=== PATIENT | female | born 1985 | race Caucasian/White ===

== ENCOUNTER 2022-01-04 05:50 | Emergency (ER) | payer MEDICAID ==
[~2022-01-04] VITALS: Ht 162.6 cm; Wt 90.9 kg
[~2022-01-04 05:50] MED LIST: HYDR-4383 PO; ONDA4TAB6 PO
[2022-01-04 05:54] VITALS: BP 120/91
--- NOTE | 2022-01-04 07:00 | NUR ---
Pt having moderate SOB with coarse sounds, asked RT to come for breathing tx. MD ok with breathing tx, will be in to see pt shortly.
[2022-01-04 07:13] LABS: ALANINE AMINOTRANSFERASE 111 U/L (12-78); ALBUMIN 3.4 G/DL (3.4-5.0); ALBUMIN/GLOBULIN RATIO 0.9 (1.1-1.5); ALKALINE PHOSPHATASE 79 IU/L (46-116); ANION GAP 6 (8-16); ASPARTATE AMINO TRANSFERASE 74 U/L (10-37); BASOPHILS # (AUTO) 0.1 X10'3 (0-0.2); BASOPHILS % (AUTO) 0.7 % (0-1); BILIRUBIN,TOTAL 0.4 MG/DL (0.1-1.0); BLOOD UREA NITROGEN 9 MG/DL (7-18); BUN/CREATININE RATIO 13.6 (6.6-38.0); CALCIUM 8.6 MG/DL (8.5-10.1); CHLORIDE 103 MMOL/L (99-107); CREATININE 0.66 MG/DL (0.40-0.90); EOSINOPHILS # (AUTO) 0.7 X10'3 (0-0.9); EOSINOPHILS % (AUTO) 6.8 % (0-6); GLUCOSE 101 MG/DL (70-104); HEMATOCRIT 42.8 % (35.0-45.0); HEMOGLOBIN 14.5 g/dl (12.0-16.0); LYMPHOCYTES % (AUTO) 20.1 % (21-51); MEAN CORPUSCULAR HEMOGLOBIN 30.2 PG (27.0-31.0); MEAN CORPUSCULAR HGB CONC 33.8 g/dL (33.0-36.5); MEAN CORPUSCULAR VOLUME 89.5 FL (78-98); MEAN PLATELET VOLUME 8.4 FL (7.4-10.4); MONOCYTES # (AUTO) 0.7 X10'3 (0-0.9); MONOCYTES % (AUTO) 6.5 % (2-12); NEUTROPHILS # (AUTO) 6.6 X10'3 (1.8-7.7); NEUTROPHILS % (AUTO) 65.9 % (42-75); PLATELET COUNT 245 X10'3 (140-440); POTASSIUM 3.9 MMOL/L (3.5-5.1); RED BLOOD COUNT 4.78 X10'6 (4.20-5.60); RED CELL DISTRIBUTION WIDTH 13.3 % (11.5-14.5); SODIUM 136 MMOL/L (135-145); TOTAL CARBON DIOXIDE 26.6 MMOL/L (24-32); TOTAL PROTEIN 7.4 G/DL (6.4-8.2); WHITE BLOOD COUNT 10.1 X10'3 (4.5-11.0); eGFR > 90 ML/MIN
[2022-01-04] MEDS ORDERED: albuterol 2.5 MG/3 ML nebule CONTNEB PRN (07:15)
[2022-01-04] MEDS ORDERED: dexamethasone sod phosphate 10mg/ml inj IV STA (07:16)
[2022-01-04] MEDS ORDERED: magnesium 2GM in 50ml NS 50 ML IV ONE (07:20)
--- NOTE | 2022-01-04 08:15 | NUR ---
Pt feeling much better with breathing tx.
--- NOTE | 2022-01-04 09:15 | NUR ---
Pt states she feels so much better after breathing tx and medications. able to get up and walk to bathroom without issues.
[2022-01-04] MEDS ORDERED: ALBU6.7H9 INH (09:33)
[2022-01-04] MEDS ORDERED: PRED20TA PO (09:33)
== END 2022-01-04 09:50 | disposition home or self-care (01) ==
LOC: ER 05:51
DX: J45.909 Unspecified asthma, uncomplicated (principal); Z20.822 Contact with and (suspected) exposure to COVID-19; R06.02 Shortness of breath; I10 Essential (primary) hypertension; F17.200 Nicotine dependence, unspecified, uncomplicated; Z88.5 Allergy status to narcotic agent; Z88.1 Allergy status to other antibiotic agents; Z79.899 Other long term (current) drug therapy
CPT/HCPCS: 36415; 71045; 80053; 83880; 84484; 85025; 87635; 93005; 94640; 94644; 96365; 96366; 96375; 99285; C9803; J1100; J3475; 94760; A7015

== ENCOUNTER 2022-06-16 12:11 | Emergency (ER) | payer MEDICAID ==
[~2022-06-16] VITALS: Ht 162.6 cm; Wt 81.8 kg
[~2022-06-16 12:11] MED LIST changes: +ALBU6.7H14 INH
[2022-06-16 12:47] VITALS: BP 146/104
[2022-06-16] MEDS ORDERED: predniSONE 20 mg tablet PO ONE (13:35)
[2022-06-16] MEDS ORDERED: ipratropium/albuterol 3ml nebule NEB ONE (13:35)
[2022-06-16] MEDS ORDERED: PRED20TA PO (13:55)
[2022-06-16] MEDS ORDERED: BUDE180A INH (13:55)
[2022-06-16] MEDS ORDERED: ALBU6.7H14 INH (13:55)
[2022-06-16] MEDS ORDERED: albuterol 2.5 MG/3 ML nebule CONTNEB PRN (14:00)
== END 2022-06-16 15:21 | disposition home or self-care (01) ==
LOC: ER 12:12
DX: J45.901 Unspecified asthma with (acute) exacerbation (principal); I10 Essential (primary) hypertension; F17.210 Nicotine dependence, cigarettes, uncomplicated; Z88.5 Allergy status to narcotic agent; Z88.1 Allergy status to other antibiotic agents
CPT/HCPCS: 71046; 94640; 94644; 99285; J7512; 94760; A7015

== ENCOUNTER 2022-09-24 03:01 | Emergency (ER) | payer MEDICAID ==
[~2022-09-24] VITALS: Ht 162.6 cm; Wt 90.9 kg
[~2022-09-24 03:01] MED LIST changes: +BUDE180A INH
[2022-09-24] MEDS ORDERED: albuterol 2.5 MG/3 ML nebule NEB ONE (03:30)
[2022-09-24] MEDS ORDERED: methylPREDNISolone sod succ 125mg/2ml vial IV ONE (03:30)
[2022-09-24] MEDS ORDERED: albuterol 2.5 MG/3 ML nebule CONTNEB PRN (03:30)
[2022-09-24 03:36] LABS: BASOPHILS # (AUTO) 0.1 X10'3 (0-0.2); BASOPHILS % (AUTO) 0.9 % (0-1); EOSINOPHILS # (AUTO) 0.8 X10'3 (0-0.9); EOSINOPHILS % (AUTO) 8.1 % (0-6); HEMATOCRIT 44.4 % (35.0-45.0); HEMOGLOBIN 14.8 g/dl (12.0-16.0); LYMPHOCYTES # (AUTO) 2.1 X10'3 (1.1-4.8); LYMPHOCYTES % (AUTO) 22.3 % (21-51); MEAN CORPUSCULAR HEMOGLOBIN 29.8 PG (27.0-31.0); MEAN CORPUSCULAR HGB CONC 33.2 g/dL (33.0-36.5); MEAN CORPUSCULAR VOLUME 89.6 FL (78-98); MEAN PLATELET VOLUME 8.3 FL (7.4-10.4); MONOCYTES # (AUTO) 0.6 X10'3 (0-0.9); MONOCYTES % (AUTO) 6.6 % (2-12); NEUTROPHILS % (AUTO) 62.1 % (42-75); PLATELET COUNT 261 X10'3 (140-440); RED BLOOD COUNT 4.95 X10'6 (4.20-5.60); RED CELL DISTRIBUTION WIDTH 14.2 % (11.5-14.5); WHITE BLOOD COUNT 9.6 X10'3 (4.5-11.0)
[2022-09-24] MEDS ORDERED: ipratropium/albuterol 3ml nebule NEB PRN (03:45)
[2022-09-24 03:50] LABS: ALANINE AMINOTRANSFERASE 25 U/L (12-78); ALBUMIN 3.9 G/DL (3.4-5.0); ALKALINE PHOSPHATASE 61 IU/L (46-116); ANION GAP 9 (8-16); ASPARTATE AMINO TRANSFERASE 19 U/L (10-37); BILIRUBIN,TOTAL 0.4 MG/DL (0.1-1.0); BLOOD UREA NITROGEN 7 MG/DL (7-18); BUN/CREATININE RATIO 10.4 (6.6-38.0); CALCIUM 9.6 MG/DL (8.5-10.1); CHLORIDE 103 MMOL/L (99-107); CREATININE 0.67 MG/DL (0.40-0.90); GLUCOSE 98 MG/DL (70-104); POTASSIUM 3.5 MMOL/L (3.5-5.1); SODIUM 139 MMOL/L (135-145); TOTAL PROTEIN 7.8 G/DL (6.4-8.2); eGFR > 90 ML/MIN
[2022-09-24 03:52] LABS: MAGNESIUM 1.9 MG/DL (1.5-2.4)
[2022-09-24 05:00] VITALS: BP 158/99
[2022-09-24] MEDS ORDERED: PRED20TA PO (05:12)
== END 2022-09-24 05:29 | disposition home or self-care (01) ==
LOC: ER 03:02
DX: J45.901 Unspecified asthma with (acute) exacerbation (principal); I10 Essential (primary) hypertension; Z88.5 Allergy status to narcotic agent; Z88.1 Allergy status to other antibiotic agents; Z79.899 Other long term (current) drug therapy
CPT/HCPCS: 36415; 80053; 83735; 83880; 84484; 85025; 93005; 94640; 94644; 96374; 99285; J2930; A7015

== ENCOUNTER 2022-11-24 16:42 | Emergency (ER) | payer MEDICAID ==
[2022-11-24] MEDS ORDERED: normal saline 1000ML IV soln IV ONE (17:05)
[2022-11-24] MEDS ORDERED: methylPREDNISolone sod succ 125mg/2ml vial IV ONE (17:05)
[2022-11-24] MEDS ORDERED: CefTRIAXone 2gm/D5W 50ml BAG 50 ML IV ONE (17:05)
[2022-11-24] MEDS ORDERED: albuterol 2.5 MG/3 ML nebule NEB ONE (17:05)
[2022-11-24 17:32] LABS: BASOPHILS # (AUTO) 0.1 X10'3 (0-0.2); BASOPHILS % (AUTO) 0.4 % (0-1); EOSINOPHILS # (AUTO) 0.1 X10'3 (0-0.9); EOSINOPHILS % (AUTO) 0.8 % (0-6); HEMATOCRIT 40.1 % (35.0-45.0); HEMOGLOBIN 13.5 g/dl (12.0-16.0); LYMPHOCYTES # (AUTO) 1.2 X10'3 (1.1-4.8); LYMPHOCYTES % (AUTO) 8.4 % (21-51); MEAN CORPUSCULAR HEMOGLOBIN 29.9 PG (27.0-31.0); MEAN CORPUSCULAR HGB CONC 33.6 g/dL (33.0-36.5); MEAN CORPUSCULAR VOLUME 89.2 FL (78-98); MEAN PLATELET VOLUME 7.6 FL (7.4-10.4); MONOCYTES # (AUTO) 0.9 X10'3 (0-0.9); MONOCYTES % (AUTO) 6.5 % (2-12); NEUTROPHILS # (AUTO) 11.9 X10'3 (1.8-7.7); NEUTROPHILS % (AUTO) 83.9 % (42-75); PLATELET COUNT 257 X10'3 (140-440); RED CELL DISTRIBUTION WIDTH 14.2 % (11.5-14.5); WHITE BLOOD COUNT 14.2 X10'3 (4.5-11.0)
[2022-11-24 17:39] LABS: CLARITY,URINE CLOUDY (Clear); COLOR,URINE YELLOW (Yellow); GLUCOSE, URINE NEGATIVE (Neg); KETONES,URINE NEGATIVE (Neg); LEUKOCYTE ESTERASE ,URINE TRACE (Neg); NITRITES, URINE NEGATIVE (Neg); OCCULT BLOOD,URINE TRACE-INTACT (Neg); PH,URINE 7.5 (4.8-8.0); PROTEIN,URINE NEGATIVE (Neg); UA COLLECTION TYPE VOIDED
[2022-11-24 17:42] LABS: ALANINE AMINOTRANSFERASE 138 U/L (12-78); ALBUMIN/GLOBULIN RATIO 0.7 (1.1-1.5); ALKALINE PHOSPHATASE 132 IU/L (46-116); ANION GAP 10 (8-16); ASPARTATE AMINO TRANSFERASE 115 U/L (10-37); BILIRUBIN,TOTAL 1.1 MG/DL (0.1-1.0); BLOOD UREA NITROGEN 5 MG/DL (7-18); BUN/CREATININE RATIO 7.9 (10.0-20.0); CALCIUM 8.6 MG/DL (8.5-10.1); CHLORIDE 100 MMOL/L (99-107); CREATININE 0.63 MG/DL (0.40-0.90); ETHANOL < 0.010 GM/DL (0.0-0.010); GLUCOSE 179 MG/DL (70-104); POTASSIUM 3.3 MMOL/L (3.5-5.1); SODIUM 132 MMOL/L (135-145); TOTAL CARBON DIOXIDE 22.4 MMOL/L (24-32); TOTAL PROTEIN 7.2 G/DL (6.4-8.2); eGFR > 90 ML/MIN
[2022-11-24 18:00] LABS: BACTERIA,URINE 4+ /HPF (Neg); SQUAMOUS EPITHELIAL CELL,UR FEW /LPF (FEW); WBC CLUMPS,URINE MODERATE /HPF (NEGATIVE); WBC,URINE 30-50 /HPF (0-4)
[2022-11-24] MEDS ORDERED: DOXY100C77 PO (18:03)
[2022-11-24] MEDS ORDERED: CEPH250T PO (18:03)
[2022-11-24] MEDS ORDERED: PRED20TA PO (18:03)
[2022-11-24 18:15] LABS: URINE AMPHETAMINE SCREEN POSITIVE (Neg); URINE BARBITUATE SCREEN NEGATIVE (Neg); URINE BENZODIAZEPINES SCREEN NEGATIVE (Neg); URINE CANNABINOID SCREEN NEGATIVE (Neg); URINE COCAINE SCREEN NEGATIVE (Neg); URINE METHADONE SCREEN NEGATIVE (Neg); URINE OPIATE SCREEN POSITIVE (Neg); URINE PHENCYCLIDINE SCREEN NEGATIVE (Neg)
== END 2022-11-24 17:55 | disposition left against medical advice (07) ==
LOC: ER 16:43
DX: J45.901 Unspecified asthma with (acute) exacerbation (principal); E87.1 Hypo-osmolality and hyponatremia; I10 Essential (primary) hypertension; F17.200 Nicotine dependence, unspecified, uncomplicated; Z88.5 Allergy status to narcotic agent; Z79.899 Other long term (current) drug therapy; Z79.1 Long term (current) use of non-steroidal anti-inflammatories (NSAID)
CPT/HCPCS: 36415; 80053; 80305; 80320; 81001; 83605; 84145; 85025; 87077; 87088; 87186; 93005; 99285; 99291

== ENCOUNTER 2025-05-20 11:49 | Emergency (ER) | payer MEDICAID ==
[~2025-05-20 11:49] MED LIST changes: -BUDE180A INH; +BUDE180A5 INH
[2025-05-20] MEDS ORDERED: POLY17PO10 PO (14:59)
== END 2025-05-20 12:53 | disposition left against medical advice (07) ==
LOC: ER 11:49
DX: S90.929A Unspecified superficial injury of unspecified foot, initial encounter (principal); Z88.5 Allergy status to narcotic agent; Z53.21 Procedure and treatment not carried out due to patient leaving prior to being seen by health care provider; X58.XXXA Exposure to other specified factors, initial encounter; Y93.89 Activity, other specified; Y92.89 Other specified places as the place of occurrence of the external cause; Y99.8 Other external cause status

== ENCOUNTER 2025-05-20 13:19 | Emergency (ER) | payer SELFPAY ==
[~2025-05-20] VITALS: Ht 162.6 cm; Wt 106.0 kg
[2025-05-20 13:21] VITALS: BP 129/88; PULSE 98; RESP 16; TEMP 98.4; O2SAT 99
[2025-05-20] MEDS: methylnaltrexone br 12mg/0.6ml inj***SubQ only SQ ONE (14:50)
--- NOTE | 2025-05-20 14:50 | Physician Documentation ---
History of Present Illness ~ Chief Complaint: Bite-insect Stated Complaint: FOOT WOUNDS Time Seen by MD: 13:48 Primary Medical Doctor: [facility] 49-year-old female presents to the ED with a complaint of blisters on her feet. So reports abdominal cramping. States she has recently been using methamphetamine and walking for extended periods without wearing socks Additionally she has been taking Suboxone regularly. States she has been having difficulty having bowel movement. Denies any fevers Day of Onset: May 20, 2025 Tetanus within 5 years?: Yes Medication Reconciliation Allergies: Coded Allergies: codeine (Verified Allergy, Unknown, 05/20/25) erythromycin base (Verified Allergy, Unknown, 05/20/25) morphine (Verified Allergy, Unknown, 05/20/25) Uncoded Allergies: AMOXCILLIN (Allergy, Unknown, 05/18/14) PENCILLIN (Allergy, Unknown, 05/18/14) Scheduled Albuterol Sulfate (Proventil Hfa), 2 PUFFS INH Q4H Albuterol Sulfate (Proventil Hfa), 2 PUFFS INH Q6H Budesonide (Pulmicort Flexhaler), 2 PUFFS INH Q12H Polyethylene Glycol 3350* (Miralax*), 1 PKT PO DAILY Scheduled PRN Hydrocodone/Acetaminophen ([place] 5-325 Tablet), 1 TABLET PO TID PRN for pain Ondansetron Hcl (Zofran), 1 TABLET PO Q6H PRN for nausea/vomiting Past Medical History Past Medical History: Hypertension, Asthma Past Surgical History: no surgical history Drug Use: methamphetamine, heroin, other Lives In: Home Review of Systems All Other Systems at this time: Reviewed and Negative ROS As stated above in the HPI, otherwise all systems are reviewed and negative. Physical Exam Vital Signs: Temperature: 98.4, Source: Temporal, Heart Rate: 98, Respiratory Rate: 16, BP: 129/88, Pulse Oximetry: 99, Weight: 106.000 Oxygen Flow Rate: 0 Physical Exam General: Alert, no apparent distress. Respiratory: Lungs clear, no respiratory distress. Chest: No accessory muscle use. Cardiovascular: Regular rate and rhythm, no murmurs. Gastrointestinal: Soft, tender left lower quadrant ,bowel sounds present Extremities: Both feet have relatively large blisters on the lateral aspects each foot.. Neurologic: Oriented x4. Psychiatric: Normal mood and affect. Skin: Normal color, warm and dry. No edema, no ecchymosis. Progress Results/Orders Results/Orders Completed Orders - KRISTIN GORE NP Methylnaltrexone Br Inj (Relistor Inj (05/20/25 14:50) Vital Signs 05/20/25 13:21 Temp 98.4 Pulse 98 Resp 16 B/P (MAP) 129/88 Pulse Ox 99 O2 Flow Rate 0 Medical Decision Making Findings This patient had multiple blisters on her bilateral lower extremities which I suspect are related to recent meth ingestion and excessive walking without socks on. She was also treated for constipation likely secondary to opioid use. At discharge she had became aggressive with staff and was required via escorted by security out of the facility Differential Dx:Considerations: Include: Abrasion, Allergic reaction, Anaphylaxis, Cellulitis, Contusion, Fracture, Hematoma, Insect envenomation, Laceration, Neurovascular injury, Punture wound, Retained foreign body, Urticaria, Other Departure Disposition: 01 HOME / SELF CARE / HOMELESS Impression: Primary Impression: Blister Additional Impression: Constipation Condition: Stable Referrals: NO PRIMARY CARE PROVIDER (PCP) Prescriptions Polyethylene Glycol 3350* (Miralax*) 1 Packet Packet 1 PKT PO DAILY for constipation for 2 Days, #2 PKT dissolve in water Prov: KRISTIN GORE NP 05/20/25 Education Educated: Patient Educated regarding: diagnosis Signature Scribe Signature: h Attestation: Scribed for Kristin Gore Handbag Stitcher by Kristin Gore - SWATI . 05/20/25 14:59 KRISTIN GORE PROGRAM MANAGER May 20, 2025 14:50
[2025-05-20] MEDS ORDERED: POLY17PO10 PO (14:59)
== END 2025-05-20 16:02 | disposition home or self-care (01) ==
LOC: ER 13:19
DX: S90.822A Blister (nonthermal), left foot, initial encounter (principal); S90.821A Blister (nonthermal), right foot, initial encounter; K59.00 Constipation, unspecified; I10 Essential (primary) hypertension; J45.909 Unspecified asthma, uncomplicated; F15.90 Other stimulant use, unspecified, uncomplicated; F11.90 Opioid use, unspecified, uncomplicated; Z88.1 Allergy status to other antibiotic agents; Z88.5 Allergy status to narcotic agent; Z88.8 Allergy status to other drugs, medicaments and biological substances; X58.XXXA Exposure to other specified factors, initial encounter; Y93.89 Activity, other specified; Y92.89 Other specified places as the place of occurrence of the external cause; Y99.8 Other external cause status
CPT/HCPCS: 99282; A6212; J2212

== ENCOUNTER 2025-05-22 07:37 | Emergency (ER) | payer OTHER ==
[~2025-05-22] VITALS: Ht 162.6 cm; Wt 105.4 kg
[~2025-05-22 07:37] MED LIST changes: +POLY17PO10 PO
[2025-05-22 07:49] VITALS: TEMP 97.4
--- NOTE | 2025-05-22 08:48 | Physician Documentation ---
Addendum CHIEF COMPLAINT/HPI: The patient is a 39 year female with a history of methamphetamine use disorder (seen here two days ago admitting to recent methamphetamine use) REVIEW OF SYSTEMS: Constitutional: Denies chills, fatigue, fever, weight gain or weight loss. HEENT: Denies hearing loss, sinus pressure or visual changes. Respiratory: Denies cough, shortness of breath or wheezing. Cardiovascular: Denies chest pain, pain while walking (claudication), edema or palpitations. Gastrointestinal: Denies abdominal pain, blood in stool, constipation, diarrhea, heartburn, loss of appetite, nausea or vomiting. Genitourinary: Denies painful urination (dysuria), excessive amount of urine (polyuria) or urinary frequency. Metabolic/Endocrine: Denies cold intolerance, heat intolerance, excessive thirst (polydipsia) or excessive hunger (polyphagia). Neurological: Denies dizziness, extremity numbness, extremity weakness, headaches, seizures or tremors. Psychiatric: Denies anxiety or depression. Integumentary: Denies breast discharge, breast lump, hives, mole change(s), rash or skin lesion. Musculoskeletal: Denies back pain, joint pain, joint swelling or neck pain. Hematologic: Denies easily bleeding, easily bruises, lymphedema or issues with blood clots. Immunologic: Denies food allergies or seasonal allergies. PHYSICAL EXAMINATION: Vitals and nursing note reviewed. Constitutional: General: Patient is awake but somnolent, oriented x 4 in no acute distress and well appearing. Speech is mildly garbled but understandable. Appearance: Normal appearance. Patient is not ill-appearing, toxic-appearing or diaphoretic. HENT: Head: Normocephalic and atraumatic. Mouth/Throat: Mouth: Mucous membranes are moist. Pharynx: Oropharynx is clear. Eyes: General: No scleral icterus. Extraocular Movements: Extraocular movements intact. Pupils: Pupils are equal, round, and reactive to light. Neck: Supple, no Kernig or Brudzinski sign. Cardiovascular: Rate and Rhythm: Normal rate and regular rhythm. Heart sounds: No murmur heard. Pulmonary: Effort: No respiratory distress. Breath sounds: No wheezing, rhonchi or rales. Abdominal: General: There is no distension. Palpations: There is no fluid wave, hepatomegaly or mass. Tenderness: There is no abdominal tenderness. There is no guarding. Musculoskeletal: General: No swelling or deformity. Skin: Coloration: Skin is not jaundiced. Findings: Very superficial abrasion over right forearm, which is nontender. Neurological: Mental Status: Patient is somnolent (8:30 a.m.) MEDICAL DECISION MAKING: This 39-year-old female with a history of polysubstance abuse came here after she was found sleeping on the ground. She has continued to sleep in the emergency department though she is easily arousable. Laboratory data are unremarkable with the exception of a potassium of 3.2 and drug screen positive for fentanyl and methamphetamine. She has been here for over 7 hours and re mained stable. I am going to get her discharged. Departure Disposition: 01 HOME / SELF CARE / HOMELESS Impression: Primary Impression: Polysubstance abuse Condition: Stable Education Educated: Patient Educated regarding: diagnosis, treatment, prognosis, need for follow up JE MUNSON MD May 22, 2025 08:48
--- NOTE | 2025-05-22 09:38 | ELECTROCARDIOGRAPH REPORT ---
[facility] Test Date: 2025-05-22 Test Time: 09:35:20 Pat Name: GUILLERMO LEE Department: [facility] Patient ID: [id number] Room: Gender: F Operations [employer]ists: : 1985 Requested By: JE MUNSON Order Number: [id number] Reading MD: Measurements Intervals [place] Rate: 68 P: 68 VT: 158 QRS: 59 QRSD: 113 T: 61 QT: 427 QTc: 455 Interpretive Statements Sinus rhythm Borderline intraventricular conduction delay Please click the below link to view image of tracing.
[2025-05-22 09:39] LABS: MEAN PLATELET VOLUME 7.7 FL (7.4-10.4); RED CELL DISTRIBUTION WIDTH 13.1 % (11.5-14.5)
[2025-05-22 09:59] LABS: CREATININE 0.77 MG/DL (0.40-0.90); TOTAL CARBON DIOXIDE 28.0 MMOL/L (24-32); eCRCL 86 ML/MIN; eGFR 84 ML/MIN
[2025-05-22 10:00] LABS: ETHANOL < 10 MG/DL (<10)
[2025-05-22 12:37] VITALS: BP 106/70; PULSE 89; RESP 18; O2SAT 98
[2025-05-22 13:50] LABS: LEUKOCYTE ESTERASE ,URINE NEGATIVE (Neg); NITRITES, URINE NEGATIVE (Neg); OCCULT BLOOD,URINE TRACE-INTACT (Neg)
[2025-05-22 13:55] LABS: UA COLLECTION TYPE STRAIGHT CATH
[2025-05-22 13:57] LABS: URINE AMPHETAMINE SCREEN POSITIVE (Neg); URINE BARBITUATE SCREEN NEGATIVE (Neg); URINE BENZODIAZEPINES SCREEN NEGATIVE (Neg); URINE CANNABINOID SCREEN NEGATIVE (Neg); URINE COCAINE SCREEN NEGATIVE (Neg); URINE METHADONE SCREEN NEGATIVE (Neg); URINE OPIATE SCREEN NEGATIVE (Neg); URINE PHENCYCLIDINE SCREEN NEGATIVE (Neg)
[2025-05-22 14:04] LABS: AMORPHOUS PHOSPHATES 1+; FINE GRANULAR CAST 0-3 /LPF (NEGATIVE); SQUAMOUS EPITHELIAL CELL,UR FEW /LPF (FEW)
[2025-05-22] MEDS: potassium Cl 20 mEq SR tablet PO STA (14:58)
== END 2025-05-22 15:06 | disposition home or self-care (01) ==
LOC: ER 07:37
DX: F19.10 Other psychoactive substance abuse, uncomplicated (principal); I49.8 Other specified cardiac arrhythmias
CPT/HCPCS: 36415; 80053; 80305; 80320; 81001; 83605; 83735; 85025; 93005; 99284; C1758

== ENCOUNTER 2025-05-25 16:52 | Emergency (ER) | payer MEDICAID, OTHER ==
[~2025-05-25] VITALS: Ht 162.6 cm; Wt 105.0 kg
[~2025-05-25 16:52] MED LIST changes: -POLY17PO10 PO
[2025-05-25 17:00] VITALS: BP 133/91; PULSE 94; RESP 16; TEMP 97.2; O2SAT 97
[2025-05-25] MEDS ORDERED: CefTRIAXone 500MG IM Kit w/LIDOcaine IM ONE (17:05)
--- NOTE | 2025-05-25 17:12 | Physician Documentation ---
History of Present Illness ~ Chief Complaint: STD Stated Complaint: STD TEST Time Seen by MD: 17:03 Primary Medical Doctor: none Source: patient Mode of Arrival: Ambulatory Exam Limitations: no limitations HPI 39-year-old female is having vaginal discharge and desires to be tested for STDs. Patient is also having a red rash to the skin folds of her pannus Medication Reconciliation Allergies: Coded Allergies: codeine (Verified Allergy, Unknown, 05/25/25) erythromycin base (Verified Allergy, Unknown, 05/25/25) morphine (Verified Allergy, Unknown, 05/25/25) Uncoded Allergies: AMOXCILLIN (Allergy, Unknown, 05/18/14) PENCILLIN (Allergy, Unknown, 05/18/14) Scheduled Albuterol Sulfate (Proventil Hfa), 2 PUFFS INH Q4H Albuterol Sulfate (Proventil Hfa), 2 PUFFS INH Q6H Budesonide (Pulmicort Flexhaler), 2 PUFFS INH Q12H Scheduled PRN Hydrocodone/Acetaminophen ([place] 5-325 Tablet), 1 TABLET PO TID PRN for pain Ondansetron Hcl (Zofran), 1 TABLET PO Q6H PRN for nausea/vomiting Discontinued Medications Polyethylene Glycol 3350* (Miralax*), 1 PKT PO DAILY Discontinued Reason: Auto Discontinued Past Medical History Past Medical History: Hypertension, Asthma Past Surgical History: no surgical history Drug Use: methamphetamine, heroin, other Lives In: Home Review of Systems All Other Systems at this time: Reviewed and Negative Integumentary: Reports: see HPI Physical Exam Vital Signs: RN Vital Signs have been reviewed: Yes, Temperature: 97.2, Source: Temporal, Heart Rate: 94, Respiratory Rate: 16, BP: 133/91, Pulse Oximetry: 97, Weight: 105.000 Oxygen Flow Rate: 0 Physical Exam General: Alert, no apparent distress. HEENT: moist mucous membranes. Neck: Full range of motion. Respiratory: No respiratory distress speaking in full sentences Chest: No accessory muscle use. Cardiovascular: Appears well perfused Neurologic: Oriented x4. Psychiatric: Normal mood and affect. Skin: Fungal Type rash to skin folds a pannus Genitourinary not examined Progress Results/Orders Results/Orders Vital Signs 05/25/25 17:00 Temp 97.2 Pulse 94 Resp 16 B/P (MAP) 133/91 Pulse Ox 97 O2 Flow Rate 0 Medical Decision Making Findings We will test and treat for STDs as well as give a antifungal powder and Diflucan tablet prescribed for the fungal yeast infection under skin folds. Patient is homeless. Discussed hygiene. Departure Time of Disposition: 17:13 Disposition: 01 HOME / SELF CARE / HOMELESS Impression: Primary Impression: Sexually transmitted disease Additional Impression: Candidiasis Referrals: NO PRIMARY CARE PROVIDER (PCP) Prescriptions Nystatin (NYSTOP powder) 100,000 Unit/Gram Gra 1 APPLIC TP BID, #30 GM Prov: NIDHI KOHLER NP 05/25/25 Fluconazole* (Diflucan*) 150 Mg Tablet 1 TAB PO ONCE for 1 Day, #1 TAB Prov: NIDHI KOHLER NP 05/25/25 Education Educated: Patient Educated regarding: diagnosis, treatment, need for follow up Signature Scribe Signature: No scribe Attestation: The note accurately reflects work and decisions made by me.Nidhi BEASLEY 05/25/25 17:16 NIDHI KOHLER NP May 25, 2025 17:12
[2025-05-25] MEDS ORDERED: DIF150T PO (17:15)
[2025-05-25] MEDS ORDERED: NYSPWD TP (17:15)
== END 2025-05-25 17:49 | disposition left against medical advice (07) ==
LOC: ER 16:53
DX: A64 Unspecified sexually transmitted disease (principal); B37.9 Candidiasis, unspecified; J45.909 Unspecified asthma, uncomplicated; I10 Essential (primary) hypertension; F15.90 Other stimulant use, unspecified, uncomplicated; F11.90 Opioid use, unspecified, uncomplicated; F19.90 Other psychoactive substance use, unspecified, uncomplicated; Z88.5 Allergy status to narcotic agent; Z88.1 Allergy status to other antibiotic agents; Z79.899 Other long term (current) drug therapy
CPT/HCPCS: 99283